=== PATIENT | female | born 1965 | race Caucasian/White ===

== ENCOUNTER 2016-11-20 20:19 | Emergency (ER) | payer MEDICAID, OTHER ==
[~2016-11-20] VITALS: Ht 170.2 cm; Wt 65.9 kg
[2016-11-20 20:24] VITALS: Ht 170.2 cm; Wt 65.9 kg
[2016-11-20] MEDS ORDERED: BELLADONNA/PHENOBARBITAL TAB PO STA (20:40)
[2016-11-20] MEDS ORDERED: SOD CHLORIDE 0.9% 1,000 ML IV STA (20:40)
[2016-11-20] MEDS ORDERED: LIDOCAINE/MYLANTA 40 ML BTL PO STA (20:40)
[2016-11-20] MEDS: ONDANSETRON 4 MG INJ IV STA ×2 (20:57→21:02)
[2016-11-20] MEDS ORDERED: LORAZEPAM 2 MG INJ IV ONE (21:00)
[2016-11-20 21:07] LABS: ADD SCAN DIFF NO
[2016-11-20 21:10] LABS: BASOPHILS % 0.5 % (0.0-2.0); EOSINOPHILS # 0.2 10^3/ul (0.0-0.5); EOSINOPHILS % 3.6 % (0.0-7.0); HEMATOCRIT 37.9 % (37.0-47.0); HEMOGLOBIN 13.2 g/dl (12.0-16.0); LYMPHOCYTES # 2.2 10^3/ul (0.8-2.9); LYMPHOCYTES % 36.3 % (15.0-51.0); MEAN CORPUSCULAR HEMOGLOBIN 31.1 pg (29.0-33.0); MEAN CORPUSCULAR HGB CONC 34.8 g/dl (32.0-37.0); MEAN CORPUSCULAR VOLUME 89.2 fl (82.0-101.0); MEAN PLATELET VOLUME 11.2 fl (7.4-10.4); MONOCYTE # 0.5 10^3/ul (0.3-0.9); MONOCYTES % 7.4 % (0.0-11.0); NEUTROPHIL # 3.2 10^3/ul (1.6-7.5); NEUTROPHILS % 51.9 % (39.0-77.0); PLATELET COUNT 187 10^3/UL (140-415); RED BLOOD COUNT 4.25 10^6/ul (4.20-5.40); RED CELL DISTRIBUTION WIDTH 12.3 % (11.5-14.5); WHITE BLOOD COUNT 6.1 10^3/ul (4.8-10.8)
[2016-11-20] MEDS ORDERED: VALE530C PO (21:23)
[2016-11-20] MEDS ORDERED: ERGO500037 PO (21:23)
[2016-11-20] MEDS ORDERED: OMEP20CA16 PO (21:23)
[2016-11-20 21:26] LABS: ALBUMIN 4.4 g/dl (3.3-4.9); CHLORIDE 105 mmol/L (97-110); SODIUM 141 mmol/L (135-144)
[2016-11-20 21:27] LABS: POTASSIUM 3.7 mmol/L (3.5-5.1)
[2016-11-20 21:29] LABS: ALANINE AMINOTRANSFERASE 37 IU/L (13-69); ALBUMIN/GLOBULIN RATIO 1.76; ALKALINE PHOSPHATASE 70 IU/L (42-121); ANION GAP 14 (8-16); ASPARTATE AMINO TRANSFERASE 24 IU/L (15-46); BILIRUBIN,INDIRECT 0.3 mg/dl (0-1.1); BILIRUBIN,TOTAL 0.3 mg/dl (0.2-1.3); BLOOD UREA NITROGEN 11 mg/dl (7-20); CALCIUM 9.9 mg/dl (8.4-10.2); CARBON DIOXIDE 26 mmol/L (21-31); CREATININE 0.61 mg/dl (0.44-1.00); GLUCOSE 121 mg/dl (70-220); TOTAL PROTEIN 6.9 g/dl (6.1-8.1)
[2016-11-20 21:43] LABS: TROPONIN-I < 0.012 ng/ml (0.00-0.12)
[2016-11-20] MEDS ORDERED: ESCI10TA48 PO (21:59)
--- NOTE | 2016-11-20 22:06 | ERD ---
ER Documentation Chief Complaint Date/Time DATE: 11/20/16 TIME: 22:02 Chief Complaint BIBA c/o CP, left arm & left leg tingling and numbness HPI 50-year-old woman brought in by EMS from home for anxiety attack which included palpitations, rapid breathing, sharp nonexertional nonradiating chest pain, and full body paresthesias. Patient has had multiple similar episodes in the past and uses valerian almost daily to help control symptoms. She attributes her symptoms to anxiety and chronic depression although denies suicidal homicidal ideation. Patient denies shortness of breath, no calf or leg swelling, no rash , no fevers or chills, no weight loss, no headache or blurry vision. Patient was transported here by EMS without further complications. ROS All systems reviewed and are negative except as per history of present illness. Medications Home Meds Active Scripts Escitalopram Oxalate* (Escitalopram Oxalate*) 10 Mg Tablet, 10 MG PO DAILY, #30 TAB Prov:BHUPENDRA DE LA CRUZ MD 11/20/16 Reported Medications Valerian Root (Valerian) 450 Mg Capsule, 450 MG PO, CAP 11/20/16 Omeprazole* (Omeprazole*) 20 Mg Capsule.dr, 20 MG PO DAILY, #30 CAP 11/20/16 Ergocalciferol (Vitamin D2) (VITAMIN D2) 50,000 Unit Capsule, 88040 UNIT PO QWEEKLY, CAP PATIENT IS TAKING THIS EVERY WEEK FOR 4 WEEKS, LAST 1 TAB TAKEN WAS 2 WEEKS AGO 11/20/16 Allergies Allergies: Coded Allergies: No Known Allergy (Unverified , 11/20/16) PMhx/Soc Anxiety, gastritis, previous cholecystectomy Medical and Surgical Hx: pt denies Medical Hx, pt denies Surgical Hx Hx Alcohol Use: No Hx Substance Use: No Hx Tobacco Use: Yes (OCCASIONAL) Smoking Status: Current some day smoker FmHx Family History: No diabetes Physical Exam Vitals Vital Signs Date Time Temp Pulse Resp B/P Pulse Ox O2 Delivery O2 Flow Rate FiO2 11/20/16 20:24 98.1 71 18 126/70 98 Physical Exam GENERAL: Well-developed, well-nourished, anxious HEENT: Moist mucous membranes, pink conjunctiva, no cervical spine tenderness or step-off deformities, no goiter, no jaundice or icterus, extraocular movements intact without pain. No submandibular induration, and no pharyngeal erythema NEURO: Alert and oriented 3, cranial nerves II through XII intact bilaterally, pupils equal round reactive to light, no focal deficits or facial asymmetry, sensation intact distally Strength 5/5 in upper and lower extremities bilaterally CARDIAC: Regular rate and rhythm, no murmurs rubs or gallops LUNGS: Clear bilaterally no wheezing crackles or stridor ABDOMEN: Soft nontender, no guarding, no rigidity, no rebound, no psoas sign no obturator sign. Normoactive bowel sounds SKIN: Warm and dry to touch, no abrasions, contusions, or hematomas, no lacerations, no ecchymosis, no target lesions, and without ulcers EXTREMITIES: No clubbing cyanosis or edema, calves are bilaterally symmetrical, no Homans sign, no popliteal cord sign. Distal pulses equal and bilateral PSYCH: Anxious Result Diagram: 11/20/16204711/20/162047 Results 24 hrs Laboratory Tests Test 11/20/16 20:48 White Blood Count 6.110^3/ul Red Blood Count 4.2510^6/ul Hemoglobin 13.2g/dl Hematocrit 37.9% Mean Corpuscular Volume 89.2fl Mean Corpuscular Hemoglobin 31.1pg Mean Corpuscular Hemoglobin Concent 34.8g/dl Red Cell Distribution Width 12.3% Platelet Count 30442^3/UL Mean Platelet Volume 11.2fl Neutrophils % 51.9% Lymphocytes % 36.3% Monocytes % 7.4% Eosinophils % 3.6% Basophils % 0.5% Nucleated Red Blood Cells % 0.0/100WBC Neutrophils # 3.210^3/ul Lymphocytes # 2.210^3/ul Monocytes # 0.510^3/ul Eosinophils # 0.210^3/ul Basophils # 0.010^3/ul Nucleated Red Blood Cells # 0.010^3/ul Sodium Level 141mmol/L Potassium Level 3.7mmol/L Chloride Level 105mmol/L Carbon Dioxide Level 26mmol/L Anion Gap 14 Blood Urea Nitrogen 11mg/dl Creatinine 0.61mg/dl Glucose Level 121mg/dl Calcium Level 9.9mg/dl Total Bilirubin 0.3mg/dl Direct Bilirubin 0.00mg/dl Indirect Bilirubin 0.3mg/dl Aspartate Amino Transf (AST/SGOT) 24IU/L Alanine Aminotransferase (ALT/SGPT) 37IU/L Alkaline Phosphatase 70IU/L Troponin I < 0.012ng/ml Total Protein 6.9g/dl Albumin 4.4g/dl Globulin 2.50g/dl Albumin/Globulin Ratio 1.76 Lipase 71U/L Current Medications Medications (Trade) Dose Ordered Sig/Sarah Route PRN Reason Start Time Stop Time Status Last Admin Dose Admin Sodium Chloride (NS) 1,000 ml @ 1,000 mls/hr Q1H STAT IV 11/20/16 20:40 11/20/16 21:39 DC 11/20/16 20:57 Ondansetron HCl (Zofran Inj) 4 mg ONCE STAT IV 11/20/16 20:40 11/20/16 20:41 DC Miscellaneous Medication (Gi Cocktail (2)) 40 ml ONCE STAT PO 11/20/16 20:40 11/20/16 20:41 DC 11/20/16 20:57 Belladonna/ Phenobarbital () 2 tab ONCE STAT PO 11/20/16 20:40 11/20/16 20:41 DC 11/20/16 20:57 Lorazepam (Ativan) 0.5 mg ONCE ONCE IV 11/20/16 21:00 11/20/16 21:01 DC 11/20/16 20:57 Procedures/MDM IV line was established patient was placed on senior marketing associate rhythm strip revealed a sinus bradycardia at about 60 bpm with upright P and T waves. Patient was afebrile. I administered 1 L normal saline intravenously, lorazepam 0.5 mg IV, Zofran 4 mg IV, and a GI cocktail 50 cc p.o. with excellent effect. EKG performed, read by me revealed a sinus bradycardia 54 bpm, normal axis, narrow QRS complex, no concerning ST elevations or depressions noted. CBC and electrolytes were normal, liver function tests were normal, troponin was negative. I recommended daily use of escitalopram with intermittent valerian use until she sees her PMD for continued outpatient management. Patient has no HI or SI here and feels much better. Patient is without complaints of chest pain. Differential diagnoses considered, included but not limited to acute coronary syndrome, pulmonary embolism, aortic dissection, abdominal aortic aneurysm, sepsis, stroke, meningitis, encephalitis, pneumonia, appendicitis, cholecystitis , bowel obstruction, pyelonephritis, nephrolithiasis, cystitis, as well as metabolic, hematologic, and electrolyte abnormalities. As well as abscess, cellulitis, fractures, and dislocations. Patient feels much better at this time, and vital signs are normal, symptoms have improved. I did give strict instructions to return to the ED if symptoms continue or worsen, patient will otherwise follow-up with primary care physician. Patient understood instructions and agreed to plan. Departure Diagnosis: Primary Impression: Depression Depression Type: reactive depression Qualified Code: F32.9 - Reactive depression Additional Impression: Anxiety Condition: Good Patient Instructions: Anxiety Reaction, Depression BHUPENDRA DE LA CRUZ MD November 20, 2016 22:06
[2016-11-20 22:10] VITALS: BP 99/67; PULSE 57; RESP 16; TEMP 98.6
== END 2016-11-20 22:10 | disposition home or self-care (01) ==
LOC: E/R 20:19 → EDBD 20:19 → E/R 22:10
DX: F32.9 Major depressive disorder, single episode, unspecified (principal); F41.9 Anxiety disorder, unspecified; F17.210 Nicotine dependence, cigarettes, uncomplicated
CPT/HCPCS: 36415; 80053; 83690; 84484; 85025; 93005; 96374; J2060; J2405; J7030; Z7502; Z7610

== ENCOUNTER 2016-11-22 18:52 | Emergency (ER) | payer OTHER ==
[~2016-11-22] VITALS: Ht 162.6 cm; Wt 66.5 kg
[~2016-11-22 18:52] MED LIST: ERGO500037 PO; ESCI10TA48 PO; OMEP20CA16 PO; VALE530C PO
[2016-11-22 19:01] VITALS: Ht 162.6 cm; Wt 66.5 kg
[2016-11-22] MEDS ORDERED: ONDANSETRON 4 MG INJ IV STA (19:58)
[2016-11-22] MEDS ORDERED: morphine 2 MG INJ IV STA (19:58)
[2016-11-22] MEDS ORDERED: SOD CHLORIDE 0.9% 1,000 ML IV STA (19:58)
[2016-11-22 20:24] VITALS: BP 128/78; PULSE 76; RESP 20; TEMP 98.2
[2016-11-22 20:27] LABS: ADD SCAN DIFF NO
[2016-11-22 20:30] LABS: BASOPHILS % 0.4 % (0.0-2.0); EOSINOPHILS # 0.2 10^3/ul (0.0-0.5); EOSINOPHILS % 2.5 % (0.0-7.0); HEMATOCRIT 38.5 % (37.0-47.0); HEMOGLOBIN 13.1 g/dl (12.0-16.0); LYMPHOCYTES # 1.7 10^3/ul (0.8-2.9); LYMPHOCYTES % 19.1 % (15.0-51.0); MEAN CORPUSCULAR HEMOGLOBIN 31.1 pg (29.0-33.0); MEAN CORPUSCULAR VOLUME 91.4 fl (82.0-101.0); MEAN PLATELET VOLUME 10.7 fl (7.4-10.4); MONOCYTE # 0.5 10^3/ul (0.3-0.9); MONOCYTES % 5.6 % (0.0-11.0); NEUTROPHIL # 6.4 10^3/ul (1.6-7.5); NEUTROPHILS % 72.1 % (39.0-77.0); PLATELET COUNT 184 10^3/UL (140-415); RED BLOOD COUNT 4.21 10^6/ul (4.20-5.40); RED CELL DISTRIBUTION WIDTH 12.4 % (11.5-14.5); WHITE BLOOD COUNT 8.9 10^3/ul (4.8-10.8)
[2016-11-22 20:39] LABS: ADD UMIC YES; URINE BILIRUBIN (Dip) NEGATIVE (NEGATIVE); URINE BLOOD (Dip) TRACE (NEGATIVE); URINE COLOR LT. YELLOW (YELLOW); URINE GLUCOSE (Dip) NEGATIVE (NEGATIVE); URINE KETONES (Dip) NEGATIVE (NEGATIVE); URINE LEUKOCYTE ESTERASE (Dip) 3+ (NEGATIVE); URINE NITRITE (Dip) NEGATIVE (NEGATIVE); URINE TOTAL PROTEIN (Dip) NEGATIVE (NEGATIVE); URINE UROBILINOGEN (Dip) 0.2 E.U./dL (0.1-1.0)
[2016-11-22 20:49] LABS: ALBUMIN 4.4 g/dl (3.3-4.9); ALBUMIN/GLOBULIN RATIO 1.83; BILIRUBIN,INDIRECT 0.1 mg/dl (0-1.1); BILIRUBIN,TOTAL 0.1 mg/dl (0.2-1.3); CALCIUM 9.8 mg/dl (8.4-10.2); CREATININE 0.63 mg/dl (0.44-1.00); POTASSIUM 3.8 mmol/L (3.5-5.1); TOTAL PROTEIN 6.8 g/dl (6.1-8.1)
[2016-11-22 20:51] LABS: URINE RBCS 0-2 /HPF (0)
--- NOTE | 2016-11-22 21:19 | RADRPT ---
PROCEDURE: Right upper quadrant abdominal ultrasound. CLINICAL INDICATION: Abdominal pain TECHNIQUE: Watts scale and color doppler ultrasound images of the right upper quadrant. COMPARISON: Abdominal ultrasound 02/17/2007, concurrent CT abdomen pelvis 11/22/2016 FINDINGS: Pancreas: Visualized portions appear of normal echogenicity, no focal lesions. Liver: Morphology: Normal in size and contour. Echogenicity: Normal. Focal lesions: None. Main portal vein: Patent with hepatopetal flow. Hepatic veins: Mildly prominent.. Biliary System: Status post cholecystectomy. Mild intrahepatic biliary dilatation. Common bile duct measures 8.4 mm in maximal dimension. Kidneys: Right 10.2 cm in length. Right renal cortical thickness is preserved. Normal echogenicity. No hydronephrosis. No renal calculi. No focal lesions. No free fluid identified. IMPRESSION: Status post cholecystectomy. Mild central intrahepatic biliary dilatation. Common bile duct is mildly dilated measuring 8.4 mm. Findings may represent postoperative change. MRCP may be useful for further evaluation. RPTAT: AADD .Jose M Senior MD, MD Date Time Electronically viewed and signed by .Jose M Senior MD, on 11/22/2016 21:18 .B/
--- NOTE | 2016-11-22 21:26 | RADRPT ---
PROCEDURE: CT Abdomen and Pelvis without contrast. CLINICAL INDICATION: Right upper quadrant pain TECHNIQUE: CT scan of the abdomen and pelvis was performed on a multidetector slice CT scanner. No intravenous contrast material was utilized. Sagittal and coronal reformatted images were obtained fr om the axial source images. Images were reviewed on a high-resolution PACS workstation. Exam CTDlvol = 10 mGy and DLP = 544 Gy-cm. One of the following 3 dose reduction techniques were used: Automated exposure control; adjustment of the mA and/or kV according to patient size; or use of iterative rec onstruction technique. COMPARISON: All sound gallbladder 11/22/2016. FINDINGS: There is no obstruction or ileus. The appendix is not identified. There is no secondary evidence f or appendicitis.. There is no evidence for diverticulitis. There is no free fluid. The liver is enlarged at 20 cm length. No intrahepatic lesions are identified. The gallbladder has b een removed. There is intra and extrahepatic biliary ductal dilatation. Common bile duct measures up to 11 mm at the pancreatic head. No calcified calculi are identified within the common bile duct .. Pancreas is normal in appearance. The spleen is unremarkable. There are no adrenal masses. The ao rta is normal caliber. Minimal vascular calcifications are present. Kidneys are normal in appearance without hydronephrosis, mass or calculus. There is no perinephric c ollection. Ureters are of normal caliber and without evidence for an obstructing calculus The urinar y bladder is contracted. The uterus and ovaries are grossly unremarkable. Limited evaluation of the lung bases is unremarkable. There are degenerative changes of the lower lumbar spine. IMPRESSION: 1. Status post cholecystectomy. Age-indeterminate biliary dilatation of the common bile duct measu ring 11 mm diameter. No calcified stone identified within the distal common bile duct. 2. New hepatomegaly. 3. Appendix not identified. No secondary evidence for appendicitis. 4. No evidence for diverticulitis. 5. No obstructive uropathy. Contracted urinary bladder. 6. Degenerate changes of the lower lumbar spine. RPTAT: HMVK .Mario Holm MD, MD Date Time Electronically viewed and signed by .Mario Holm MD, on 11/22/2016 21:26 .K/
[2016-11-22] MEDS ORDERED: CEFTRIAXONE 1 GM/50 ML (PMX) 50 ML IVPB ONE (21:30)
[2016-11-22] MEDS ORDERED: CIPR500T4 PO (23:19)
[2016-11-22] MEDS ORDERED: NAPR-688 PO (23:20)
--- NOTE | 2016-11-22 23:34 | ERD ---
ER Documentation Chief Complaint Date/Time DATE: 11/22/16 TIME: 23:27 Chief Complaint RUQ abd pain x 4 months HPI 50-year-old female with right upper quadrant abdominal pain for 4 months as well as right flank pain is new in onset. She denies any anterior abdominal pain. Has had urinary tract infections in the past. She denies fevers chills nausea and vomiting. ROS All systems reviewed and are negative except as per history of present illness. Medications Home Meds Active Scripts Naproxen* (Naproxen*) 500 Mg Tablet, 500 MG PO BID Y for PAIN, #20 TAB Prov:ALEXNHUNG DO 11/22/16 Ciprofloxacin Hcl* (Ciprofloxacin Hcl*) 500 Mg Tablet, 500 MG PO BID for 10 Days , TAB Prov:NHUNG JOHNSON DO 11/22/16 Escitalopram Oxalate* (Escitalopram Oxalate*) 10 Mg Tablet, 10 MG PO DAILY, #30 TAB Prov:BHUPENDRA DE LA CRUZ MD 11/20/16 Reported Medications Valerian Root (Valerian) 450 Mg Capsule, 450 MG PO, CAP 11/20/16 Omeprazole* (Omeprazole*) 20 Mg Capsule.dr, 20 MG PO DAILY, #30 CAP 11/20/16 Discontinued Reported Medications Ergocalciferol (Vitamin D2) (VITAMIN D2) 50,000 Unit Capsule, 41281 UNIT PO QWEEKLY, CAP PATIENT IS TAKING THIS EVERY WEEK FOR 4 WEEKS, LAST 1 TAB TAKEN WAS 2 WEEKS AGO 11/20/16 Allergies Allergies: Coded Allergies: No Known Allergy (Unverified , 11/22/16) PMhx/Soc History of Surgery: No Anesthesia Reaction: No Hx Neurological Disorder: No Hx Respiratory Disorders: No Hx Cardiac Disorders: No Hx Psychiatric Problems: Yes (Depression) Hx Miscellaneous Medical Probl: No Hx Alcohol Use: No Hx Substance Use: No Hx Tobacco Use: Yes (OCCASIONAL) Smoking Status: Current some day smoker Physical Exam Vitals Vital Signs Date Time Temp Pulse Resp B/P Pulse Ox O2 Delivery O2 Flow Rate FiO2 11/22/16 20:24 98.2 76 20 128/78 98 Room Air 11/22/16 19:01 97.8 71 20 123/61 98 Physical Exam Const: [] No distress Head: Atraumatic Eyes: Normal Conjunctiva ENT: Normal External Ears, Nose and Mouth. Neck: Full range of motion..~ No meningismus. Resp: Clear to auscultation bilaterally Cardio: Regular rate and rhythm, no murmurs Abd: Soft, mild right upper quadrant tenderness, non distended. Normal bowel sounds Skin: No petechiae or rashes Back: No midline or flank tenderness, no CVA tenderness Ext: No cyanosis, or edema Neur: Awake and alert and oriented 3, no focal deficits Psych: Normal Mood and Affect Result Diagram: 11/22/16200911/22/162009 Results 24 hrs Laboratory Tests Test 11/22/16 20:10 White Blood Count 8.910^3/ul Red Blood Count 4.2110^6/ul Hemoglobin 13.1g/dl Hematocrit 38.5% Mean Corpuscular Volume 91.4fl Mean Corpuscular Hemoglobin 31.1pg Mean Corpuscular Hemoglobin Concent 34.0g/dl Red Cell Distribution Width 12.4% Platelet Count 86497^3/UL Mean Platelet Volume 10.7fl Neutrophils % 72.1% Lymphocytes % 19.1% Monocytes % 5.6% Eosinophils % 2.5% Basophils % 0.4% Nucleated Red Blood Cells % 0.0/100WBC Neutrophils # 6.410^3/ul Lymphocytes # 1.710^3/ul Monocytes # 0.510^3/ul Eosinophils # 0.210^3/ul Basophils # 0.010^3/ul Nucleated Red Blood Cells # 0.010^3/ul Urine Color LT. YELLOW Urine Clarity CLEAR Urine pH 6.0 Urine Specific [place] <=1.005 Urine Ketones NEGATIVE Urine Nitrite NEGATIVE Urine Bilirubin NEGATIVE Urine Urobilinogen 0.2 E.U./dL Urine Leukocyte Esterase 3+ Urine Microscopic RBC 0-2/HPF Urine Microscopic WBC 10-25/HPF Urine Hemoglobin TRACE Urine Glucose NEGATIVE% Urine Total Protein NEGATIVE Sodium Level 140mmol/L Potassium Level 3.8mmol/L Chloride Level 106mmol/L Carbon Dioxide Level 27mmol/L Anion Gap 11 Blood Urea Nitrogen 6mg/dl Creatinine 0.63mg/dl Glucose Level 109mg/dl Calcium Level 9.8mg/dl Total Bilirubin 0.1mg/dl Direct Bilirubin 0.00mg/dl Indirect Bilirubin 0.1mg/dl Aspartate Amino Transf (AST/SGOT) 18IU/L Alanine Aminotransferase (ALT/SGPT) 34IU/L Alkaline Phosphatase 63IU/L Total Protein 6.8g/dl Albumin 4.4g/dl Globulin 2.40g/dl Albumin/Globulin Ratio 1.83 Lipase 52U/L Current Medications Medications (Trade) Dose Ordered Sig/Sarah Route PRN Reason Start Time Stop Time Status Last Admin Dose Admin Sodium Chloride (NS) 1,000 ml @ 1,000 mls/hr Q1H STAT IV 11/22/16 19:58 11/22/16 20:57 DC 11/22/16 20:57 Morphine Sulfate (morphine) 2 mg ONCE STAT IV 11/22/16 19:58 11/22/16 20:01 DC 11/22/16 20:11 Ondansetron HCl 4 mg 4 mg ONCE STAT IV 11/22/16 19:58 11/22/16 20:01 DC 11/22/16 20:11 Ceftriaxone Sodium (Rocephin) 50 ml @ 100 mls/hr ONCE ONCE IVPB 11/22/16 21:30 11/22/16 21:59 DC 11/22/16 21:12 Procedures/MDM Pyelonephritis and chronic right upper quadrant pain with age-indeterminate intrahepatic ductal dilation. Workup positive for urinary tract infection with right flank pain that is newer. She does have chronic right upper quadrant pain and does have a trip hepatic duct dilation without increased LFTs or bilirubin. She is stable without fever and chills. Give her a gram of Rocephin in the emergency room for her pyelonephritis. I am going to discharge her with ciprofloxacin for 10 days. Urine culture was obtained to assure proper treatment. Patient has a primary care follow-up appointment next week already scheduled. I printed all of her results including the scan and suggested that she follow-up with a optical effects camera operator for the ductal dilation and hepatomegaly. She was given morphine on IV fluid as well as Zofran emergency room with great improvement of her symptoms. Instructed to return the emergency room if the symptoms in the right upper quadrant did not improve or if they get worse. This point she is appropriate for outpatient workup and treatment. I am discharging her with naproxen and Cipro CT abdomen pelvis interpretation: Hepatomegaly and age-indeterminate intra- hepatic ductal dilation. No obstruction, no free air, no abnormal fat stranding , no fractures Right upper quadrant ultrasound interpretation: Common bile duct dilation without pericystic colic fluid or evidence of stones Departure Diagnosis: Primary Impression: Pyelonephritis Additional Impression: Intrahepatic bile duct dilation Condition: Stable Patient Instructions: Pyelonephritis, Female (Adult) Additional Instructions: Call your primary care doctor TOMORROW for an appointment during the next 2-3 days. Obtain a referral for a optical effects camera operator for liver findings. See the doctor sooner or return here if your condition worsens before your appointment time. NHUNG JOHNSON DO November 22, 2016 23:34
[2016-11-23] MEDS ORDERED: LORA1TAB PO (19:25)
[2016-11-23] MEDS ORDERED: FAMO-18 PO (19:27)
== END 2016-11-22 23:36 | disposition home or self-care (01) ==
LOC: E/R 18:52
DX: N12 Tubulo-interstitial nephritis, not specified as acute or chronic (principal); F17.210 Nicotine dependence, cigarettes, uncomplicated; K83.8 Other specified diseases of biliary tract
CPT/HCPCS: 36415; 74176; 76705; 80053; 81001; 83690; 85025; 87086; 96374; 96375; J0696; J2270; J2405; J7030; Z7502; 81003

== ENCOUNTER 2016-11-23 17:18 | Emergency (ER) | payer OTHER ==
[~2016-11-23] VITALS: Ht 167.6 cm; Wt 68.0 kg
[~2016-11-23 17:18] MED LIST changes: +CIPR500T4 PO; -ERGO500037 PO; +NAPR-688 PO
[2016-11-23 17:41] VITALS: Ht 167.6 cm; Wt 68.0 kg
[2016-11-23] MEDS ORDERED: LORAZEPAM 1 MG TAB PO ONE (19:00)
--- NOTE | 2016-11-23 19:21 | RADRPT ---
PROCEDURE: Chest x-ray CLINICAL INDICATION: Shortness of breath TECHNIQUE: Chest single view COMPARISON: 03/01/2007 FINDINGS: The heart is normal in size. The pulmonary vessels are normal in caliber. There is a 1.5 cm nodula r density in the left lower lung which likely represents a nipple shadow. Recommend repeat study wi th nipple markers. Lungs otherwise clear. The costophrenic angles are sharp. The visualized bony t horax is unremarkable. IMPRESSION: No acute cardiopulmonary disease. 1.5 cm nodular density projected over the left lower lung likely reflects a nipple shadow. Consider repeat study with nipple markers RPTAT: HH .Jaguar Siddiqi MD, Date Time Electronically viewed and signed by .Jaguar Siddiqi MD, MD on 11/23/2016 19:20 .W/
[2016-11-23] MEDS ORDERED: LORA1TAB PO (19:25)
[2016-11-23] MEDS ORDERED: FAMO-18 PO (19:27)
--- NOTE | 2016-11-23 20:03 | ERD ---
ER Documentation Chief Complaint Date/Time DATE: 11/23/16 TIME: 19:35 Chief Complaint numbness to the hands in the afternoon x 3 weeks HPI This is a 50-year-old female that presents to the ER for continued right upper quadrant pain that radiates into her epigastric area up her chest and makes it feel short of breath. Patient states that after she eats she feels as if she has a lot of indigestion and this causes pressure that radiates to her chest and causes her to feel short of breath. Patient states that she begins to breathe rapidly and that soon after she begins to experience numbness and tingling of her hands and sometimes her lower extremities. Patient has had episodes every night for the last 3 weeks, according to patient this happens from 3 PM through 9 PM. Patient denies any headache, head trauma. She denies any nausea vomiting or diarrhea. She denies any fevers or chills. Patient denies any weaknesses to her upper or lower extremities. ROS 12 point review of systems was done, all negative except per HPI. Medications Home Meds Active Scripts Famotidine* (Pepcid*) 20 Mg Tablet, 20 MG PO BID for 7 Days, TAB Prov:JANAK GARCIA 11/23/16 Lorazepam* (Lorazepam*) 1 Mg Tablet, 1 MG PO QHS, #30 TAB Prov:JANAK GARCIA 11/23/16 Naproxen* (Naproxen*) 500 Mg Tablet, 500 MG PO BID Y for PAIN, #20 TAB Prov:NHUNG JOHNSON DO 11/22/16 Ciprofloxacin Hcl* (Ciprofloxacin Hcl*) 500 Mg Tablet, 500 MG PO BID for 10 Days , TAB Prov:NHUNG JOHNSON DO 11/22/16 Escitalopram Oxalate* (Escitalopram Oxalate*) 10 Mg Tablet, 10 MG PO DAILY, #30 TAB Prov:BHUPENDRA DE LA CRUZ MD 11/20/16 Reported Medications Valerian Root (Valerian) 450 Mg Capsule, 450 MG PO, CAP 11/20/16 Omeprazole* (Omeprazole*) 20 Mg Capsule.dr, 20 MG PO DAILY, #30 CAP 11/20/16 Discontinued Reported Medications Ergocalciferol (Vitamin D2) (VITAMIN D2) 50,000 Unit Capsule, 08844 UNIT PO QWEEKLY, CAP PATIENT IS TAKING THIS EVERY WEEK FOR 4 WEEKS, LAST 1 TAB TAKEN WAS 2 WEEKS AGO 5/15/17 Allergies Allergies: Coded Allergies: No Known Allergy (Unverified , 11/22/16) PMhx/Soc History of Surgery: No Anesthesia Reaction: No Hx Neurological Disorder: No Hx Respiratory Disorders: No Hx Cardiac Disorders: No Hx Psychiatric Problems: Yes (Depression) Hx Miscellaneous Medical Probl: No Hx Alcohol Use: No Hx Substance Use: No Hx Tobacco Use: Yes (OCCASIONAL) Smoking Status: Current every day smoker Physical Exam Vitals Vital Signs Date Time Temp Pulse Resp B/P Pulse Ox O2 Delivery O2 Flow Rate FiO2 11/23/16 17:41 98.4 68 18 127/76 98 Physical Exam GENERAL: The patient is well developed and appropriate for usual state of health , in no apparent distress. HEENT: Atraumatic. Conjunctivae are pink. Pupils equal, round, and reactive to light. Extraocular muscles are grossly intact. Bilateral tympanic membranes are clear with no evidence of erythema, bulging or perforation. No sinus tenderness. NECK: C-spine is soft and supple. There is no cervical lymphadenopathy. CHEST: Clear to auscultation bilaterally. There are no rales, wheezes or rhonchi. HEART: Regular rate and rhythm. No murmurs, clicks, rubs or gallops. EXTREMITIES: Equal pulses bilaterally. There is no peripheral clubbing, cyanosis or edema. No focal swelling or erythema. Full range of motion. Grossly neurovascularly intact. NEURO: Alert and oriented. Cranial nerves II through XII are intact. Motor strength in all 4 extremities with 5/5 strength. Sensation grossly intact. Normal speech and gait. Negative [place]omberg. +2 DTRs. SKIN: There is no apparent rash or petechia. The skin is warm and dry. Results 24 hrs Current Medications Medications (Trade) Dose Ordered Sig/Sarah Route PRN Reason Start Time Stop Time Status Last Admin Dose Admin Lorazepam (Ativan) 1 mg ONCE ONCE PO 11/23/16 19:00 11/23/16 19:01 DC Procedures/MDM This is a 50-year-old female presents to the ER with multiple complaints. Patient was extensively worked up yesterday. There was no evidence of acute abdominal emergency. I discussed his case with my supervising physician Dr. Roche, who agrees with my medical decision making. Chest x-ray was done and was negative for any intrathoracic abnormality. EKG was done and read by Dr. Amor 55bpm no ST elevation or t wave inversion. Patient symptoms are most consistent with anxiety. Patient describes hyperventilation, likely causing the numbness and tingling of her fingertips. In regards to patient's right upper quadrant pain that radiates into her epigastric area and into her chest, this may be acid reflux disease. I advised patient to follow-up with the GI doctor, to rule out GERD, liver disease, laryngeal spasms, esophagitis etc. Suspicion for acute cardiac etiology etiology such as pulmonary embolism, pulmonary pneumothorax, [place], AAA, acute [place], pneumonia is low. Suspicion for acute intracranial pathology such as bleed or tumor as well as patient is neurologically intact with no focal neurological deficits. Patient is afebrile and extremely well-appearing. I thoroughly explained my medical decision making with the patient using an estonian interperter. Patient was told to continue taking her antibiotics which were prescribed to her yesterday for her UTI. She will be sent home with Ativan and with famotidine. She is to follow- up with her primary care doctor within 1-2 days return to ER sooner if symptoms worsen. My medical decision making shared with the patient she understands and agrees with plan. Departure Diagnosis: Primary Impression: Anxiety Condition: Stable Patient Instructions: Anxiety Reaction Additional Instructions: Call your primary care doctor TOMORROW for an appointment during the next 1-2 days.See the doctor sooner or return here if your condition worsens before your appointment time. JANAK GARCIA November 23, 2016 19:51
[2016-11-23 20:10] VITALS: BP 138/88; PULSE 89; RESP 20; TEMP 97.8
== END 2016-11-23 20:09 | disposition home or self-care (01) ==
LOC: FTE 17:18
DX: F41.9 Anxiety disorder, unspecified (principal); F17.210 Nicotine dependence, cigarettes, uncomplicated; R10.11 Right upper quadrant pain
CPT/HCPCS: 71010; 93005

== ENCOUNTER 2018-07-16 20:37 | Emergency (ER) | payer SELFPAY ==
[~2018-07-16] VITALS: Ht 160 cm; Wt 62.0 kg
[~2018-07-16 20:37] MED LIST changes: +FAMO-96 PO; +LORA1TAB PO
[2018-07-16 20:57] VITALS: BP 131/82; PULSE 71; RESP 20; Ht 160 cm; Wt 62.0 kg
== END 2018-07-16 23:20 | disposition left against medical advice (07) ==
LOC: FTE 20:37
DX: Z53.21 Procedure and treatment not carried out due to patient leaving prior to being seen by health care provider (principal)

== ENCOUNTER 2018-10-21 21:07 | Emergency (ER) | payer OTHER ==
[~2018-10-21] VITALS: Ht 160 cm; Wt 67.0 kg
[2018-10-21 21:13] VITALS: Ht 160 cm; Wt 67.0 kg
[2018-10-21] MEDS ORDERED: LORAZEPAM 2 MG INJ IV ONE (22:30)
[2018-10-22] MEDS ORDERED: LORA1TAB PO (00:28)
--- NOTE | 2018-10-22 00:32 | ERD ---
ER Documentation Chief Complaint Chief Complaint RUQ abdominal pain with nausea x 3 years worse the last 7 days HPI This is a 52-year female right upper quadrant abdominal pain nausea for 3 years that is worse in the last 7 days. She denies any fevers or chills. Mild nausea but no vomiting. She also feels very anxious. Also complaining of mild headache. No focal neurologic complaints. No changes in bowel or bladder habits. No other current issues. ROS All systems reviewed and are negative except as per history of present illness. Medications Home Meds Active Scripts Lorazepam* (Lorazepam*) 1 Mg Tablet, 1 MG PO Q8, #10 TAB Prov:FORREST BARON 10/22/18 Famotidine* (Pepcid*) 20 Mg Tablet, 20 MG PO BID for 7 Days, TAB Prov:RADHA,JANAK C 11/23/16 Lorazepam* (Lorazepam*) 1 Mg Tablet, 1 MG PO QHS, #30 TAB Prov:KARL GARCIANA C 11/23/16 Naproxen* (Naproxen*) 500 Mg Tablet, 500 MG PO BID PRN for PAIN, #20 TAB Prov:NHUNG JOHNSON DO 11/22/16 Ciprofloxacin Hcl* (Ciprofloxacin Hcl*) 500 Mg Tablet, 500 MG PO BID for 10 Days, TAB Prov:NHUNG JOHNSON DO 11/22/16 Escitalopram Oxalate* (Escitalopram Oxalate*) 10 Mg Tablet, 10 MG PO DAILY, #30 TAB Prov:BHUPENDRA DE LA CRUZ MD 11/20/16 Reported Medications Valerian Root (Valerian) 450 Mg Capsule, 450 MG PO, CAP 11/20/16 Omeprazole* (Omeprazole*) 20 Mg Capsule.dr, 20 MG PO DAILY, #30 CAP 11/20/16 Allergies Allergies: Coded Allergies: No Known Allergy (Unverified , 07/16/18) PMhx/Soc History of Surgery: No Anesthesia Reaction: No Hx Neurological Disorder: No Hx Respiratory Disorders: No Hx Cardiac Disorders: No Hx Psychiatric Problems: Yes (Depression) Hx Miscellaneous Medical Probl: No Hx Alcohol Use: No Hx Substance Use: No Hx Tobacco Use: Yes (OCCASIONAL) Physical Exam Vitals Vital Signs Date Temp Pulse Resp B/P (MAP) Pulse Ox O2 O2 Flow FiO2 Time Delivery Rate 10/21/18 97.1 78 18 117/79 99 21:13 (92) 10/21/18 97.9 76 18 134/61 100 21:13 (85) Physical Exam Const: No acute distress Head: Atraumatic Eyes: Normal Conjunctiva ENT: Normal External Ears, Nose and Mouth. Neck: Full range of motion. No meningismus. Resp: Clear to auscultation bilaterally Cardio: Regular rate and rhythm, no murmurs Abd: Soft, non tender, non distended. Normal bowel sounds Skin: No petechiae or rashes Back: No midline or flank tenderness Ext: No cyanosis, or edema Neur: Awake and alert Psych: Normal Mood and Affect Result Diagram: 10/21/18223810/21/182238 Results 24 hrs Laboratory Tests Test 10/21/18 22:39 White Blood Count 5.8 10^3/ul Red Blood Count 4.46 10^6/ul Hemoglobin 13.9 g/dl Hematocrit 40.5 % Mean Corpuscular Volume 90.8 fl Mean Corpuscular Hemoglobin 31.2 pg Mean Corpuscular Hemoglobin Concent 34.3 g/dl Red Cell Distribution Width 12.9 % Platelet Count 189 10^3/UL Mean Platelet Volume 10.8 fl Immature Granulocytes % 0.200 % Neutrophils % 49.4 % Lymphocytes % 40.4 % Monocytes % 5.5 % Eosinophils % 4.0 % Basophils % 0.5 % Nucleated Red Blood Cells % 0.0 /100WBC Immature Granulocytes # 0.010 10^3/ul Neutrophils # 2.9 10^3/ul Lymphocytes # 2.3 10^3/ul Monocytes # 0.3 10^3/ul Eosinophils # 0.2 10^3/ul Basophils # 0.0 10^3/ul Nucleated Red Blood Cells # 0.0 10^3/ul Sodium Level 139 mmol/L Potassium Level 4.0 mmol/L Chloride Level 106 mmol/L Carbon Dioxide Level 26 mmol/L Anion Gap 7 Blood Urea Nitrogen 14 mg/dl Creatinine 0.56 mg/dl Est Glomerular Filtrat Rate mL/min > 60 mL/min Glucose Level 103 mg/dl Calcium Level 9.9 mg/dl Total Bilirubin 0.4 mg/dl Direct Bilirubin 0.00 mg/dl Indirect Bilirubin 0.4 mg/dl Aspartate Amino Transf (AST/SGOT) 15 IU/L Alanine Aminotransferase (ALT/SGPT) 24 IU/L Alkaline Phosphatase 77 IU/L Total Protein 6.8 g/dl Albumin 4.3 g/dl Globulin 2.50 g/dl Albumin/Globulin Ratio 1.72 Lipase 103 U/L Current Medications Medications Dose Sig/Sarah Start Time Status Last (Trade) Ordered Route PRN Stop Time Admin Dose Reason Admin Lorazepam 1 mg ONCE ONCE 10/21/18 DC 10/21/18 (Ativan) IV 22:30 22:39 10/21/18 22:31 Procedures/MDM EKG: Rate/Rhythm: [Normal Sinus Rhythm] QRS, ST, T-waves: [No changes consistent w/ acute ischemia] Impression: [No evidence of ischemia or arrhythmia] Medical decision making: Patient's neurologic symptoms have stabilized while they have been evaluated in the department and are appropriate for outpatient work up. No e/o meningitis, intracranial bleed, seizure, stroke. Patient's gastrointestinal symptoms have stabilized while in the department. No evidence of severe dehydration, sepsis, or surgical abdomen. Extensive discussion with family and patient that occult disease cannot be ruled out. 8 hour recheck for repeat abdominal exam is planned. Departure Diagnosis: Primary Impression: Abdominal pain Abdominal location: unspecified location Qualified Codes: R10.9 - Unspecified abdominal pain Condition: Stable Patient Instructions: Abdominal Pain FORREST BARON Oct 22, 2018 00:32
[2018-10-22 01:07] VITALS: BP 100/70; PULSE 61; RESP 17
== END 2018-10-22 01:04 | disposition home or self-care (01) ==
LOC: E/R 21:07
DX: R10.11 Right upper quadrant pain (principal); R51 Headache; Z87.891 Personal history of nicotine dependence
CPT/HCPCS: 36415; 70450; 76705; 80053; 83690; 85025; 96374; J2060; Z7502

== ENCOUNTER 2018-10-29 17:48 | Emergency (ER) | payer OTHER ==
[~2018-10-29] VITALS: Ht 167.6 cm; Wt 57.8 kg
[2018-10-29 17:50] VITALS: Ht 167.6 cm; Wt 57.8 kg
[2018-10-29] MEDS ORDERED: ONDANSETRON 4 MG INJ IV STA (21:00)
[2018-10-29] MEDS ORDERED: SOD CHLORIDE 0.9% 1,000 ML IV STA (21:00)
[2018-10-29] MEDS ORDERED: HYDROmorphONE 1 MG/ML SYG IV STA (21:00)
[2018-10-29] MEDS ORDERED: IOHEXOL 300MG/ML 150 ML BTL ONE (22:24)
[2018-10-29] MEDS ORDERED: SOD CHLORIDE 0.9% 100 ML ONE (22:24)
[2018-10-29] MEDS ORDERED: LIDOCAINE/MYLANTA 40 ML BTL PO STA (23:32)
[2018-10-29] MEDS ORDERED: BELLADONNA/PHENOBARBITAL TAB PO STA (23:32)
[2018-10-29] MEDS ORDERED: IBUP-1542 PO (23:40)
--- NOTE | 2018-10-29 23:40 | ERD ---
ER Documentation Chief Complaint Chief Complaint pt bib self with c/o abd pain x 4 days , seen here , still has pain HPI This is a 52-year-old [place] speaking female who presents to the emergency department complaining of abdominal pain. Patient seen and evaluated 4 days prior to arrival for similar pain. She indicates that the pain is epigastric in region and does radiate to the right lower quadrant. 4 days prior to arrival she is also been complaining of a headache which she states resolved. She had a CT scan of her brain which was found to be normal. She had a gallbladder ultrasound which was found to be normal as the patient had a previous cholecystectomy. She said no fevers no shaking or chills. She states there is no alleviating or exacerbating factors to the pain. She does not take any analgesic medication at home. She denies any frequency urgency or dysuria. No hemoptysis no hematemesis and melanotic stools. She denies any weight loss. No shortness of breath at rest or exertion. ROS All systems reviewed and are negative except as per history of present illness. Medications Home Meds Active Scripts Lorazepam* (Lorazepam*) 1 Mg Tablet, 1 MG PO Q8, #10 TAB Prov:FORREST BARON 10/22/18 Famotidine* (Pepcid*) 20 Mg Tablet, 20 MG PO BID for 7 Days, TAB Prov:JANAK GARCIA 11/23/16 Lorazepam* (Lorazepam*) 1 Mg Tablet, 1 MG PO QHS, #30 TAB Prov:JANAK GARCIA 11/23/16 Naproxen* (Naproxen*) 500 Mg Tablet, 500 MG PO BID PRN for PAIN, #20 TAB Prov:NHUNG JOHNSON DO 11/22/16 Ciprofloxacin Hcl* (Ciprofloxacin Hcl*) 500 Mg Tablet, 500 MG PO BID for 10 Days, TAB Prov:NHUNG JOHNSON DO 11/22/16 Escitalopram Oxalate* (Escitalopram Oxalate*) 10 Mg Tablet, 10 MG PO DAILY, #30 TAB Prov:BHUPENDRA DE LA CRUZ MD 11/20/16 Reported Medications Valerian Root (Valerian) 450 Mg Capsule, 450 MG PO, CAP 11/20/16 Omeprazole* (Omeprazole*) 20 Mg Capsule.dr, 20 MG PO DAILY, #30 CAP 11/20/16 Allergies Allergies: Coded Allergies: No Known Allergy (Unverified , 07/16/18) PMhx/Soc History of Surgery: No Anesthesia Reaction: No Hx Neurological Disorder: No Hx Respiratory Disorders: No Hx Cardiac Disorders: No Hx Psychiatric Problems: Yes (Depression) Hx Miscellaneous Medical Probl: No Hx Alcohol Use: No Hx Substance Use: No Hx Tobacco Use: Yes (OCCASIONAL) Smoking Status: Light tobacco smoker Physical Exam Vitals Vital Signs Date Temp Pulse Resp B/P (MAP) Pulse Ox O2 O2 Flow FiO2 Time Delivery Rate 10/29/18 70 18 145/75 99 Room Air 22:59 (98) 10/29/18 97.5 78 18 143/76 97 17:50 (98) Physical Exam Constitutional:Well-developed. Well-nourished. HEENT:Normocephalic. Atraumatic.Pupils were equal round reactive to light. Moist mucous membranes.No tonsillar exudates. Neck: No nuchal rigidity. No lymphadenopathy. No posterior cervical spine tenderness or step-offs. Respiratory: Not using accessory muscles of respiration.Lungs were clear to auscultation bilaterally. No rhonchi. No rales. No wheezing. Cardiovascular: Regular rate regular rhythm.No murmurs. No rubs were appreciated.S1, S2 normal. Distal pulses are palpable 2+ bilaterally. GI: Abdomen was soft. Right lower quadrant tenderness with negative psoas sign negative obturator sign.. Non Distended. No pulsatile abdominal masses or bruits. No rebound. No guarding. Bowel sounds were present and normal. Muscle skeletal: Full range of motion of both the upper and lower extremities bilaterally.Normal muscle tone.No assymetrical calf tenderness or swelling. Skin: No petechia, no purpura. No lesions on the palms or the soles of the feet. No maculopapular rash. NEURO: Patient was alert, awake, orientated x3.No facial droop. Gait observed and normal with no ataxia.Speech had regular rate and rhythm. No focal neurological deficits. Result Diagram: 10/29/18210710/29/182107 Results 24 hrs Laboratory Tests Test 10/29/18 21:08 White Blood Count 5.8 10^3/ul Red Blood Count 4.34 10^6/ul Hemoglobin 13.7 g/dl Hematocrit 40.1 % Mean Corpuscular Volume 92.4 fl Mean Corpuscular Hemoglobin 31.6 pg Mean Corpuscular Hemoglobin Concent 34.2 g/dl Red Cell Distribution Width 12.7 % Platelet Count 153 10^3/UL Mean Platelet Volume 11.4 fl Immature Granulocytes % 0.200 % Neutrophils % 52.7 % Lymphocytes % 36.8 % Monocytes % 6.2 % Eosinophils % 3.4 % Basophils % 0.7 % Nucleated Red Blood Cells % 0.0 /100WBC Immature Granulocytes # 0.010 10^3/ul Neutrophils # 3.1 10^3/ul Lymphocytes # 2.2 10^3/ul Monocytes # 0.4 10^3/ul Eosinophils # 0.2 10^3/ul Basophils # 0.0 10^3/ul Nucleated Red Blood Cells # 0.0 10^3/ul Prothrombin Time 13.3 Sec Prothrombin Time Ratio 1.0 INR International Normalized Ratio 1.00 Activated Partial Thromboplast Time 29.6 Sec Urine Color STRAW Urine Clarity CLEAR Urine pH 7.0 Urine Specific [place] 1.006 Urine Ketones NEGATIVE mg/dL Urine Nitrite NEGATIVE mg/dL Urine Bilirubin NEGATIVE mg/dL Urine Urobilinogen NEGATIVE mg/dL Urine Leukocyte Esterase 2+ Jory/ul Urine Microscopic RBC 1 /HPF Urine Microscopic WBC 6 /HPF Urine Hemoglobin 1+ mg/dL Urine Glucose NEGATIVE mg/dL Urine Total Protein NEGATIVE mg/dl Sodium Level 140 mmol/L Potassium Level 4.8 mmol/L Chloride Level 105 mmol/L Carbon Dioxide Level 27 mmol/L Anion Gap 8 Blood Urea Nitrogen 20 mg/dl Creatinine 0.82 mg/dl Est Glomerular Filtrat Rate mL/min > 60 mL/min Glucose Level 87 mg/dl Calcium Level 9.3 mg/dl Total Bilirubin 0.3 mg/dl Direct Bilirubin 0.00 mg/dl Indirect Bilirubin 0.3 mg/dl Aspartate Amino Transf (AST/SGOT) 21 IU/L Alanine Aminotransferase (ALT/SGPT) 24 IU/L Alkaline Phosphatase 80 IU/L Troponin I < 0.012 ng/ml Total Protein 6.6 g/dl Albumin 4.4 g/dl Globulin 2.20 g/dl Albumin/Globulin Ratio 2.00 Amylase Level 77 U/L Lipase 108 U/L Current Medications Medications Dose Sig/Sarah Start Time Status Last (Trade) Ordered Route PRN Stop Time Admin Dose Reason Admin Sodium 1,000 ml @ Q1H STAT 10/29/18 DC 10/29/18 Chloride 1,000 mls/hr IV 21:00 21:24 10/29/18 21:59 1 mg ONCE STAT 10/29/18 DC 10/29/18 Hydromorphone IV 21:00 21:23 HCl 10/29/18 21:02 (Dilaudid) Ondansetron 4 mg ONCE STAT 10/29/18 DC 10/29/18 HCl (Zofran IV 21:00 21:23 Inj) 10/29/18 21:02 IV Flush 10 ml STK-MED 10/29/18 DC 10/29/18 (NS 10 ml) ONCE .ROUTE : 23:14 10/29/18 22:25 Sodium 100 ml @ ud STK-MED 10/29/18 DC 10/29/18 Chloride ONCE .ROUTE : 23:14 10/29/18 22:25 Iohexol 150 ml STK-MED 10/29/18 DC 10/29/18 (Omnipaque ONCE .ROUTE : 23:14 300mg/ ml) 10/29/18 22:25 Procedures/MDM This patient presented to the emergency department with abdominal pain and was seen and evaluated by myself. My differential diagnosis included but was not limited to abdominal aortic aneurysm, appendicitis, pancreatitis, perforated peptic ulcer, perforated viscus, Boerhaaves syndrome or visceral pain such as diverticulitis, DKA, esophagitis, hepatitis or bowel obstruction. The patient was placed on a personnel monitor, continuous pulse oximetry, and IV access was established by nursing staff. Patient received intravenous morphine and Zofran. A 12-lead EKG tracing was ordered to rule out for atypical myocardial infarct ion. 12 Lead EKG tracing ordered and reviewed by myself showed: Normal sinus rhythm of 62 bpm and no arrhythmia. IA interval normal. QRS duration normal. No ST segment elevation No ST segment depression. No changes consistent with acute ischemia. I obtained a CT scan of the patient's abdomen. There is no evidence of obstructive uropathy, diverticulitis or secondary changes to suggest appendici tis. The patient had no leukocytosis and no severe electrolyte abnormalities. There did appear to be a language barrier and I did have a anatomy teacher present. I indicated to the patient that he did not have an exact etiology into her symptoms but I did not feel she required admission at this time. I felt she would benefit from an outpatient colonoscopy and upper endoscopy. She also received a GI cocktail which improved her pain. The patient was discharged home in fair condition. They were instructed to return to the emergency department at any time if there was any worsening of their condition. The patient stated they would follow up with their PCP in the next 24-48 hours to initiate a suitable medication regimen under the care of their PCP as well as to allow their PCP to monitor any drug reactions. The patient was discharged home with prescriptions after they gave informed consent to the new medication. They were also fully informed by myself on the adverse effects and adverse drug interactions in order to provide adequate safeguards to prevent possible adverse reactions to me dications. Departure Diagnosis: Primary Impression: Abdominal pain Abdominal location: right lower quadrant Qualified Codes: R10.31 - Right lower quadrant pain Condition: Fair BEKA WILLIAMSON MD Oct 29, 2018 23:39
[2018-10-30] VITALS: BP 119/84; PULSE 62; RESP 19
[2018-10-30] MEDS ORDERED: MAGN400T27 PO (00:04)
[2018-10-30] MEDS ORDERED: METO-335 PO (00:04)
[2018-10-30] MEDS ORDERED: FAMO20TA18 PO (00:04)
== END 2018-10-30 00:12 | disposition home or self-care (01) ==
LOC: E/R 17:48
DX: R10.31 Right lower quadrant pain (principal); F17.210 Nicotine dependence, cigarettes, uncomplicated
CPT/HCPCS: 74177; 80053; 81001; 82150; 83690; 84484; 85025; 85610; 85730; 93005; 96374; 96375; J1170; J2405; J7030; Q9967; Z7502; Z7610

== ENCOUNTER 2018-11-18 22:24 | Emergency (ER) | payer OTHER ==
[~2018-11-18] VITALS: Wt 57.9 kg
[~2018-11-18 22:24] MED LIST changes: -CIPR500T4 PO; -ESCI10TA48 PO; -FAMO-96 PO; +FAMO20TA18 PO; +IBUP-1542 PO; +MAGN400T27 PO; +METO-335 PO; -NAPR-688 PO; -OMEP20CA16 PO
[2018-11-19] MEDS ORDERED: DIAZEPAM 5 MG/ML SYG IM ONE (00:30)
--- NOTE | 2018-11-19 00:41 | ERD ---
ER Documentation Chief Complaint Chief Complaint abd pain since yesterday HPI This is a 51-year-old female with history of chronic anxiety and chronic abdominal pain here for reevaluation. Patient was here recently. Reviewing emergency room multiple times for this in the past. She denies any change in the caregiver pain she states to get them prior to arrival now her symptoms resolved upon arrival arrival to the room. Denies fevers chills nausea vomiting. Denies any other current complaints. ROS All systems reviewed and are negative except as per history of present illness. Medications Home Meds Active Scripts Ibuprofen* (Motrin*) 600 Mg Tab, 600 MG PO Q6H PRN for PAIN AND OR ELEVATED TEMP, #30 TAB Prov:BEKA WILLIAMSON MD 10/29/18 Lorazepam* (Lorazepam*) 1 Mg Tablet, 1 MG PO QHS, #30 TAB Prov:JANAK GARCIA 11/23/16 Reported Medications Magnesium Oxide* (Mag-Oxide*) 400 Mg Tablet, 400 MG PO DAILY for 30 Days TAKE 1 TABLET BY MOUTH EVERY DAY 10/30/18 Famotidine* (Famotidine*) 20 Mg Tablet, 20 MG PO DAILY for 30 Days, #30 TAKE 1 TABLET BY MOUTH EVERY DAY 10/30/18 Metoprolol Succinate* (Toprol XL*) 25 Mg Tab.sr.24h, 25 MG PO DAILY for 30 Days, #30 TAKE 1 TABLET BY MOUTH EVERY DAY 10/30/18 Valerian Root (Valerian) 450 Mg Capsule, 450 MG PO, CAP 11/20/16 Allergies Allergies: Coded Allergies: No Known Allergy (Unverified , 10/30/18) PMhx/Soc History of Surgery: No Anesthesia Reaction: No Hx Neurological Disorder: No Hx Respiratory Disorders: No Hx Cardiac Disorders: Yes (HTN) Hx Psychiatric Problems: Yes (Depression) Hx Miscellaneous Medical Probl: No Hx Alcohol Use: No Hx Substance Use: No Hx Tobacco Use: Yes (OCCASIONAL) Smoking Status: Never smoker Physical Exam Vitals Vital Signs Date Temp Pulse Resp B/P (MAP) Pulse Ox O2 O2 Flow FiO2 Time Delivery Rate 11/18/18 98.4 75 18 109/69 97 22:42 (82) Physical Exam Const: No acute distress Head: Atraumatic Eyes: Normal Conjunctiva ENT: Normal External Ears, Nose and Mouth. Neck: Full range of motion. No meningismus. Resp: Clear to auscultation bilaterally Cardio: Regular rate and rhythm, no murmurs Abd: Soft, non tender, non distended. Normal bowel sounds Skin: No petechiae or rashes Back: No midline or flank tenderness Ext: No cyanosis, or edema Neur: Awake and alert Psych: Normal Mood and Affect Results 24 hrs Current Medications Medications Dose Sig/Sarah Start Time Status Last (Trade) Ordered Route PRN Stop Time Admin Dose Reason Admin Diazepam 5 mg ONCE ONCE 11/19/18 DC (Valium) IM 00:30 11/19/18 00:31 Procedures/MDM Medical decision makin-year-old female with chronic anxiety. Has been clinically stable. Will follow with PCP. Advise follow-up in 8 hours for serial abdominal exams as well. Departure Diagnosis: Primary Impression: Abdominal pain Abdominal location: unspecified location Qualified Codes: R10.9 - Unspecified abdominal pain Condition: Stable Patient Instructions: Anxiety Reaction FORREST BARON November 19, 2018 00:41
[2018-11-19 00:54] VITALS: BP 117/85; PULSE 78; RESP 16
== END 2018-11-19 00:55 | disposition home or self-care (01) ==
LOC: E/R 22:24
DX: R10.9 Unspecified abdominal pain (principal); I10 Essential (primary) hypertension; Z87.891 Personal history of nicotine dependence
CPT/HCPCS: J3360; Z7502

== ENCOUNTER 2018-11-24 20:08 | Emergency (ER) | payer OTHER ==
[~2018-11-24] VITALS: Ht 170.2 cm; Wt 58.1 kg
[2018-11-24 20:17] VITALS: Ht 170.2 cm; Wt 58.1 kg
[2018-11-24 20:57] VITALS: BP 131/83; PULSE 63; RESP 21
--- NOTE | 2018-11-24 23:59 | ERD ---
ER Documentation Chief Complaint Chief Complaint RLQ ab pain radiating to R flank x 2 yrs;shaky&dizzy;took Ativan;hx HTN HPI 52-year-old female with right lower quadrant abdominal pain rating to right flank for 2 years. Patient has been here multiple times for similar complaints. Requests admission because she says she cannot find the answer. Patient is somewhat rude, however she is been calm down and is agreed to blood test and CT scan unlike last week where she refused. ROS All systems reviewed and are negative except as per history of present illness. Medications Home Meds Active Scripts Ibuprofen* (Motrin*) 600 Mg Tab, 600 MG PO Q6H PRN for PAIN AND OR ELEVATED TEMP, #30 TAB Prov:BEKA WILLIASMON MD 10/29/18 Lorazepam* (Lorazepam*) 1 Mg Tablet, 1 MG PO QHS, #30 TAB Prov:JANAK GARCIA 11/23/16 Reported Medications Magnesium Oxide* (Mag-Oxide*) 400 Mg Tablet, 400 MG PO DAILY for 30 Days TAKE 1 TABLET BY MOUTH EVERY DAY 10/30/18 Famotidine* (Famotidine*) 20 Mg Tablet, 20 MG PO DAILY for 30 Days, #30 TAKE 1 TABLET BY MOUTH EVERY DAY 10/30/18 Metoprolol Succinate* (Toprol XL*) 25 Mg Tab.sr.24h, 25 MG PO DAILY for 30 Days, #30 TAKE 1 TABLET BY MOUTH EVERY DAY 10/30/18 Valerian Root (Valerian) 450 Mg Capsule, 450 MG PO, CAP 11/20/16 Allergies Allergies: Coded Allergies: No Known Allergy (Unverified , 10/30/18) PMhx/Soc History of Surgery: No Anesthesia Reaction: No Hx Neurological Disorder: No Hx Respiratory Disorders: No Hx Cardiac Disorders: Yes (HTN) Hx Psychiatric Problems: Yes (Depression) Hx Miscellaneous Medical Probl: No Hx Alcohol Use: No Hx Substance Use: No Hx Tobacco Use: Yes (OCCASIONAL) Smoking Status: Current every day smoker Physical Exam Vitals Vital Signs Date Temp Pulse Resp B/P (MAP) Pulse Ox O2 O2 Flow FiO2 Time Delivery Rate 11/24/18 63 21 131/83 98 Room Air 20:57 (99) 11/24/18 98.2 76 20 155/74 99 20:17 (101) Physical Exam Const: No acute distress Head: Atraumatic Eyes: Normal Conjunctiva ENT: Normal External Ears, Nose and Mouth. Neck: Full range of motion. No meningismus. Resp: Clear to auscultation bilaterally Cardio: Regular rate and rhythm, no murmurs Abd: Soft, non tender, non distended. Normal bowel sounds Skin: No petechiae or rashes Back: No midline or flank tenderness Ext: No cyanosis, or edema Neur: Awake and alert Psych: Normal Mood and Affect Result Diagram: 11/24/18204511/24/182045 Results 24 hrs Laboratory Tests Test 11/24/18 20:46 White Blood Count 6.7 10^3/ul Red Blood Count 4.64 10^6/ul Hemoglobin 14.3 g/dl Hematocrit 42.9 % Mean Corpuscular Volume 92.5 fl Mean Corpuscular Hemoglobin 30.8 pg Mean Corpuscular Hemoglobin Concent 33.3 g/dl Red Cell Distribution Width 12.5 % Platelet Count 187 10^3/UL Mean Platelet Volume 11.0 fl Immature Granulocytes % 0.100 % Neutrophils % 54.7 % Lymphocytes % 36.7 % Monocytes % 6.0 % Eosinophils % 1.9 % Basophils % 0.6 % Nucleated Red Blood Cells % 0.0 /100WBC Immature Granulocytes # 0.010 10^3/ul Neutrophils # 3.7 10^3/ul Lymphocytes # 2.5 10^3/ul Monocytes # 0.4 10^3/ul Eosinophils # 0.1 10^3/ul Basophils # 0.0 10^3/ul Nucleated Red Blood Cells # 0.0 10^3/ul Sodium Level 141 mmol/L Potassium Level 4.8 mmol/L Chloride Level 106 mmol/L Carbon Dioxide Level 29 mmol/L Anion Gap 6 Blood Urea Nitrogen 22 mg/dl Creatinine 0.65 mg/dl Est Glomerular Filtrat Rate mL/min > 60 mL/min Glucose Level 97 mg/dl Calcium Level 10.1 mg/dl Total Bilirubin 0.4 mg/dl Direct Bilirubin 0.00 mg/dl Indirect Bilirubin 0.4 mg/dl Aspartate Amino Transf (AST/SGOT) 72 IU/L Alanine Aminotransferase (ALT/SGPT) 26 IU/L Alkaline Phosphatase 78 IU/L Total Protein 6.7 g/dl Albumin 4.5 g/dl Globulin 2.20 g/dl Albumin/Globulin Ratio 2.04 Lipase 149 U/L Procedures/MDM Medical decision makin-year-old female who was decided to sign out AGAINST MEDICAL ADVICE. Upon signing out AMA, patient is ANO x4 with goal oriented speech and good decision-making capacity with ability to negotiate the community. She is been told that she might possibly secondary to her condition. She understands these risks and verbalizes this understanding by repeating the risks back in her own words. Patient has been advised to follow- up with her primary care physician to seek follow-up care and return to ER immediately for any complications. Departure Diagnosis: Primary Impression: Abdominal pain Abdominal location: unspecified location Qualified Codes: R10.9 - U nspecified abdominal pain Condition: Fair FORREST BARON November 24, 2018 23:59
== END 2018-11-25 00:03 | disposition left against medical advice (07) ==
LOC: E/R 20:08
DX: R10.31 Right lower quadrant pain (principal); I10 Essential (primary) hypertension; F17.210 Nicotine dependence, cigarettes, uncomplicated
CPT/HCPCS: 36415; 80053; 83690; 85025; Z7502; 99283

== ENCOUNTER 2019-01-26 00:27 | Emergency (ER) | payer SELFPAY ==
[~2019-01-26] VITALS: Ht 157.5 cm; Wt 58.1 kg
[2019-01-26 00:38] VITALS: BP 144/78; PULSE 62; RESP 18; Ht 157.5 cm; Wt 58.1 kg
== END 2019-01-26 03:46 | disposition left against medical advice (07) ==
LOC: FTE 00:27
DX: Z53.21 Procedure and treatment not carried out due to patient leaving prior to being seen by health care provider (principal)

== ENCOUNTER 2019-02-20 20:08 | Emergency (ER) | payer SELFPAY ==
[~2019-02-20] VITALS: Ht 177.8 cm; Wt 80.0 kg
[2019-02-20 20:10] VITALS: BP 132/77; PULSE 77; RESP 20; Ht 177.8 cm; Wt 80.0 kg
== END 2019-02-20 20:23 | disposition left against medical advice (07) ==
LOC: FTE 20:08
DX: Z53.21 Procedure and treatment not carried out due to patient leaving prior to being seen by health care provider (principal)